=== PATIENT | female | born 1945 | race American Indian/Alaskan Native ===

== ENCOUNTER 2018-05-15 06:11 | Day surgery (SDC) | payer MEDICARE ==
[2018-05-08 09:59] VITALS: BMI 36.0
--- NOTE | 2018-05-14 23:25 | HP ---
DATE OF EXAM: 05/15/2018 REASON FOR DICTATION: Patient admitted for elective removal of loop recorder. This is the redo H&P done because yesterday dictation did not came out. BRIEF CLINICAL HISTORY: This is a 72-year-old female with past medical history significant for hypertension, hypothyroidism, proximal atrial fibrillation, who had loop recorder placed 2 years ago and now is admitted for removal of loop recorder. Patient denies any chest pain, shortness of breath or any palpitation. History of hypothyroidism and proximal atrial fibrillation. RECENT CARDIAC WORKUP: As follows: Patient had a stress test dated 02/10/2018. An echo dated 02/10/2018 revealed an ejection fraction of 65-70%, trace to mild aortic regurgitation, trace to mild mitral regurgitation, trace to mild tricuspid regurgitation. RV systolic pressure at 27. Calculated ejection fraction 65% to 70% dated 02/10/2018. For this, patient is also on stress test. Dated 02/10/2018 is a Lexiscan that shows abnormal reversible anterior apical defects suspicious ischemia, ejection fraction 75%. SOCIAL HISTORY: Denies smoking. Denies any history of alcohol abuse. CURRENT MEDICATIONS: Patient is taking multivitamin, levothyroxine 75 mcg daily, aspirin 81 mg daily, amiodarone 200 mg daily and Fosamax 70 mg daily. REVIEW OF SYSTEMS: As per HPI. PHYSICAL EXAMINATION: GENERAL: Height of the patient 5 feet 4 inches, weight of the patient 210 pounds, body mass index 36 kg/m2. VITAL SIGNS: Rest of the vitals; temperature afebrile, heart rate 68, and blood pressure 130/80. HEENT: PERRLA. Extraocular muscles intact. NECK: Supple. No carotid bruit or thyromegaly. CHEST: Clear to auscultation. HEART: S1 and S2, regular. ABDOMEN: Soft. EXTREMITIES: Clubbing and cyanosis is negative. LABORATORY DATA: Blood workup pending. IMPRESSION: A 72-year-old female with a past medical history significant for proximal atrial fibrillation status post loop recorder in the past. Now. the patient had loop recorder removal. For loop recorder removal, normal sinus and amiodarone, non-obstructive coronary artery disease, preserved left ventricular function, ejection fraction of 65%to 70%, trace mitral regurgitation, trace tricuspid regurgitation, trace aortic regurgitation. We will follow the blood work up, when the blood is available, we will proceed for removal of loop recorder. Further recommendation depend upon . We will follow with you. Thank you for providing us the opportunity in taking care of the patient, Jessy Gresham. Ulises Walker MD
[2018-05-15 07:07] LABS: BASO # 0.02 K/mm3 (0.0-2.0); BASO % 0.5 % (0.0-3.0); EOS # 0.2 (0.0-0.7); EOS % 6.1 % (1.5-5.0); HEMOGLOBIN 12.6 g/dL (12.0-16.0); LYMPH # 1.4 (1.2-3.4); MEAN CELL VOLUME 98.3 fl (80.0-105.0); MEAN CORPUSCULAR HEMOGLOBIN 30.9 pg (25.0-35.0); MEAN CORPUSCULAR HGB CONC 31.4 g/dl (31.0-37.0); MEAN PLATELET VOLUME 9.8 fl (7.0-11.0); MONO # 0.3 (0.1-0.6); MONO % 6.9 % (1.0-6.0); RBC 4.08 10^6/uL (3.5-6.1); RED CELL DISTRIBUTION WIDTH 13.6 % (11.5-14.5); WHITE BLOOD COUNT 3.8 10^3/uL (4.5-11.0)
[2018-05-15] MEDS ORDERED: Heparin 0 ML IV ONE (07:15)
[2018-05-15] MEDS ORDERED: Lidocaine 2% Inj (20ml) ONE (07:15)
[2018-05-15] MEDS ORDERED: Phenylephrine 10 mg/ml Inj ONE (07:15)
[2018-05-15 07:16] LABS: INR 1.01; PARTIAL THROMBOPLASTIN TIME 32.5 Seconds (26.9-38.3); PROTHROMBIN TIME 11.4 SECONDS (9.4-12.5)
[2018-05-15 07:18] LABS: BLOOD UREA NITROGEN 22 mg/dL (7-21); CALCIUM 9.1 mg/dL (8.4-10.5); GFR NON-AFRICAN AMERICAN 55; HDL CHOLESTEROL 53 mg/dL (29-60)
[2018-05-15 07:28] LABS: LDL CHOLESTEROL 85 mg/dL (0-129)
[2018-05-15] MEDS ORDERED: Midazolam 2 MG/2 ML VIAL ONE (08:00)
--- NOTE | 2018-05-15 08:18 | HP ---
DATE OF EXAM: 05/12/2018 REASON FOR ADMISSION: Removal of loop recorder. BRIEF CLINICAL HISTORY: This is a 72-year-old female with a past medical history significant for paroxysmal possible AFib, complaining of palpitations. The patient had multiple times Holter monitoring as an outpatient, had a loop recorder as an outpatient, is being admitted for loop recorder removal. The patient is currently in sinus. PAST MEDICAL HISTORY: Significant for paroxysmal atrial fibrillation, hypertension, hypothyroidism. CURRENT MEDICATIONS: The patient is taking aspirin 81 mg daily, amiodarone 200 mg daily, multivitamin 1 tablet daily, levothyroxine 75 mcg daily, Fosamax 70 mg daily. ALLERGIES: NO KNOWN DRUG ALLERGY. SOCIAL HISTORY: Denies smoking. Denies any history of alcohol abuse. REVIEW OF SYSTEMS: As per HPI. PHYSICAL EXAMINATION: As follows: GENERAL: Height of the patient 5 feet 4 inches, weight of the patient 210 pounds, body mass index 38 kg/m2. VITAL SIGNS: Temperature afebrile, heart rate 70, blood pressure 130/80. HEENT: PERRLA intact. NECK: Supple. No carotid bruits. No thyromegaly. CHEST: Clear to auscultation. HEART: S1 and S2, regular. ABDOMEN: Soft. EXTREMITIES: Clubbing and cyanosis, negative. LABORATORY DATA: Blood workup, pending. IMPRESSION AND PLAN: A 72-year-old female with a past medical history significant for paroxysmal atrial fibrillation, status post loop recorder. Now, the patient is in normal sinus and admitted for loop recorder removal, also history of hypothyroidism. We will review the blood workup. We will remove the loop recorder. Further recommendations after loop recorder. Thank you Dr. Castro for providing us this opportunity in taking care of the patient, Vaishnavi Gresham. Ulises Walker MD
[2018-05-15] MEDS ORDERED: Sodium Chloride 0.9% 1,000 ML IV SCH (08:30)
--- NOTE | 2018-05-15 08:57 | CPOSTOP ---
DATE: 05/15/2018 CARDIOVASCULAR LAB POSTPROCEDURE NOTE PHYSICIAN: Ulises Walker MD WAIT STAFF: ASHANTI Kelley. TYPE OF ANESTHESIA: Moderate conscious sedation, total 1 mg of Versed and 50 of fentanyl as well as local anesthesia given. PRE-PROCEDURE DIAGNOSIS: Arrhythmia. PROCEDURE PERFORMED: Removal of loop recorder (LINQ). FINDINGS: Successful removal of loop recorder. FINAL DIAGNOSIS: Arrhythmia. POST PROCEDURE CONDITION: The patient's condition is stable. VASCULAR ACCESS SITE: Left side of the chest. CLOSURE DEVICE: Dermabond. TOTAL RADIATION DOSE: 122.3 milligray unit. FLUORO TIME: 0.3 minute. Ulises Walker MD
[2018-05-15 09:21] VITALS: RESP 18; TEMP 97.8
--- NOTE | 2018-05-15 09:41 | CARDCATH ---
PROCEDURE DATE: 05/15/2018 TYPE OF PROCEDURE: Removal of loop recorder. SCHEDULING: Elective. PBX MECHANIC: Dr Rosanna Walker. ASSOCIATE PROFESSOR OF ECONOMICS: Valdemar Harrison. BRIEF CLINICAL HISTORY: This is a 72-year-old male with a past medical history significant for arrhythmia and proximal atrial fibrillation, status post loop recorder 2 years ago, now patient is scheduled for status post loop recorder. The patient was brought to the cath lab radiological technologist, prepped and draped in standard sterile fashion. Left side of the chest was prepared under the fluoroscopy, positioned of loop recorder (LINK) was identified. A small L-shape incision was given after given 2% lidocaine and 1 mg of versed and 50 mg of fentanyl given intravenously. After this, the loop recorder was freed from the fibrous tissue and removed. The surgical wound was closed with a Vicryl 2.0. Patient tolerated the procedure well. Postprocedure Dermabond applied. Patient returned to floor in stable condition. Plan is to discharge him an hour after observation. Thank you Dr. Castro, providing the opportunity to taking care of patient, Marga Jiménez. Ulises Walker MD cc: Telma Castro MD
[2018-05-15 09:49] VITALS: BP 110/58; PULSE 66; O2SAT 98
== END 2018-05-15 10:52 | disposition home or self-care (01) ==
LOC: CATH 06:11
PROVIDERS: ATTEND Internal Medicine Cardiovascular Disease
DX: I48.0 Paroxysmal atrial fibrillation (principal); I10 Essential (primary) hypertension; E03.9 Hypothyroidism, unspecified; I25.10 Atherosclerotic heart disease of native coronary artery without angina pectoris
CPT/HCPCS: 33286; 36415; 80048; 80061; 85025; 85610; 85730; 86850; 86900; 99152; J2250; J3010; J7030; J7040